=== PATIENT | male | born 1995 | race Caucasian/White ===

== ENCOUNTER 2018-01-21 19:36 | Emergency (ER) | payer OTHER ==
[~2018-01-21] VITALS: Ht 170.2 cm; Wt 90.7 kg
[2018-01-21 19:49] VITALS: BP 131/73
== END 2018-01-21 20:39 | disposition home or self-care (01) ==
LOC: ER 19:40
DX: F41.1 Generalized anxiety disorder (principal); K21.9 Gastro-esophageal reflux disease without esophagitis; F43.10 Post-traumatic stress disorder, unspecified
CPT/HCPCS: 99284; A4606; Z7610

== ENCOUNTER 2018-04-22 14:54 | Emergency (ER) | payer OTHER ==
[~2018-04-22] VITALS: Ht 170.2 cm; Wt 90.7 kg
--- NOTE | 2018-04-22 14:54 | NUR ---
PT AMBULATORY TO ER BED 02 C/O EPIGASTRIC/ LUQ ABDOMINAL PAIN FOR DAYS NOW. PT STATES WORST TODAY. NAUSEA BUT DENIES VOMITING. PLACED ON MONITOR. VSS. AWAITING MD JOHNSON.
--- NOTE | 2018-04-22 15:30 | NUR ---
DR RINCON AT BEDSIDE FOR EVAL.
[2018-04-22] MEDS ORDERED: SUCRALFATE 1 G TABLET ONE (15:41)
--- NOTE | 2018-04-22 15:49 | NUR ---
Patient discharged to home in stable condition. Written and verbal after care instructions given. Patient verbalizes understanding of instruction.
[2018-04-22 15:52] VITALS: BP 142/77
[2018-04-22] MEDS ORDERED: SUCRALFATE 1 G TABLET PO ONE (16:00)
== END 2018-04-22 15:52 | disposition home or self-care (01) ==
LOC: ER 14:55
DX: K29.60 Other gastritis without bleeding (principal); F41.9 Anxiety disorder, unspecified; F43.10 Post-traumatic stress disorder, unspecified; K21.9 Gastro-esophageal reflux disease without esophagitis; Z87.01 Personal history of pneumonia (recurrent)
CPT/HCPCS: 99283; A4606; Z7610

== ENCOUNTER 2018-11-21 20:21 | Emergency (ER) | payer OTHER ==
[~2018-11-21] VITALS: Ht 170.2 cm; Wt 95.3 kg
[2018-11-21 20:26] VITALS: BP 149/88
== END 2018-11-21 21:17 | disposition home or self-care (01) ==
LOC: ER 20:24
DX: R51 Headache (principal); K21.9 Gastro-esophageal reflux disease without esophagitis; F41.9 Anxiety disorder, unspecified; F43.10 Post-traumatic stress disorder, unspecified; V49.49XA Driver injured in collision with other motor vehicles in traffic accident, initial encounter; Y93.89 Activity, other specified; Y92.89 Other specified places as the place of occurrence of the external cause; Y99.8 Other external cause status